=== PATIENT | female | born 1970 | race Caucasian/White ===

== ENCOUNTER 2016-05-06 10:02 | Outpatient (CLI) | payer OTHER ==
--- NOTE | 2016-05-06 12:09 | RAD ---
LEFT FINGER 3 views: Date: 05/06/16 HISTORY: Pain in left fourth finger. FINDINGS/IMPRESSION: No fracture, dislocation, or bony destruction is seen. POS: [id number]
== END 2016-05-06 10:03 | disposition home or self-care (01) ==
LOC: NAV RAD 10:02
PROVIDERS: ATTEND Family Medicine
DX: M79.645 Pain in left finger(s) (principal)